=== PATIENT | female | born 1970 | race African-American/Black ===

== ENCOUNTER 2024-06-18 15:17 | Emergency (ER) | payer MEDICAID, OTHER ==
[~2024-06-18] VITALS: Ht 160 cm; Wt 91.0 kg
[~2024-06-18 15:17] MED LIST: ALBU18HF2 IH
[2024-06-18 15:26] VITALS: O2SAT 99
[2024-06-18] MEDS ORDERED: ONDANSETRON HCL 4MG/2ML INJ IV STA (16:04)
[2024-06-18 17:11] LABS: BASOPHILS % 0.7 % (0.0-2.0); EOSINOPHILS % 6.6 % (0.0-5.0); HEMATOCRIT. 38.6 % (36.0-48.0); HEMOGLOBIN. 12.6 g/dL (12.0-16.0); MEAN CORPUSCULAR HEMOGLOBIN 26.8 pg (28.0-32.0); MEAN CORPUSCULAR HGB CONC 32.7 g/dL (31.0-37.0); MEAN CORPUSCULAR VOLUME 81.7 fL (81.0-99.0); MEAN PLATELET VOLUME 8.7 fl (7.4-10.4); MONOCYTES % 10.2 % (2.0-8.0); NEUTROPHILS % 42.5 % (40.0-76.0); PLATELET 299 x1000/uL (130-400); RED BLOOD CELL COUNT 4.72 mill/uL (4.2-5.4); RED CELL DISTRIBUTION WIDTH 16.3 % (11.6-14.6); WHITE BLOOD COUNT 5.8 x1000/uL (4.5-11.0)
[2024-06-18 17:18] LABS: CHLORIDE 106 mEq/L (98-107); POTASSIUM 3.5 mEq/L (3.5-5.1); SODIUM 143 mEq/L (136-145)
[2024-06-18 17:19] LABS: CALCIUM 9.5 mg/dL (8.7-10.4); CARBON DIOXIDE 31 mEq/L (21-32)
[2024-06-18 17:20] LABS: PROTHROMBIN TIME 10.9 sec (9.6-11.0)
[2024-06-18 17:24] LABS: GLUCOSE 101 mg/dL (70-105); UREA NITROGEN BLOOD 9 mg/dL (9-23)
[2024-06-18 17:26] LABS: ALANINE AMINOTRANSFERASE 61 IU/L (10-49); ALBUMIN 4.7 g/dL (3.2-4.8); ASPARTATE AMINOTRANSFERASE 56 IU/L (<34); BILIRUBIN DIRECT 0.4 mg/dL (<=3.0); BILIRUBIN TOTAL 1.6 mg/dL (0.1-1.0)
[2024-06-18 17:29] LABS: TROPONIN I HIGH SENSITIVITY 47 ng/L (3.0-34)
[2024-06-18] MEDS ORDERED: ASPIRIN 325MG EC TABLET PO ONE (18:15)
[2024-06-18] MEDS ORDERED: HYDRALAZINE 20MG/ML VIAL IV PRN (21:45)
[2024-06-18] MEDS: HYDRALAZINE 20MG/ML VIAL IV NR (21:54)
[2024-06-18] MEDS: ENOXAPARIN 100MG/ML SYR SUBCUT SCH (21:55)
[2024-06-18] MEDS: ONDANSETRON HCL 4MG/2ML INJ IV NR (23:40)
[2024-06-18] MEDS: ASPIRIN 325MG EC TABLET PO NR (23:41)
[2024-06-19] MEDS ORDERED: DEXTROSE 50% WATER 50ML SYRINGE IV PRN (05:00)
[2024-06-19] MEDS ORDERED: HYDRALAZINE 20MG/ML VIAL IV PRN (05:15)
[2024-06-19] MEDS ORDERED: ACETAMINOPHEN 325MG TABLET PO PRN (05:15)
[2024-06-19] MEDS: MORPHINE SULFATE 2 MG/ML INJ (NOT FOR IM USE) IV PRN (05:22)
[2024-06-19] MEDS: ONDANSETRON HCL 4MG/2ML INJ IV PRN (05:24)
[2024-06-19] MEDS: SODIUM CHLORIDE 0.45% 1,000 ML IV SCH (06:07)
[2024-06-19] MEDS: INSULIN LISPRO 100 UNITS/ML SUBCUT SCH (08:20)
[2024-06-19] MEDS: BLOOD SUGAR DIAGNOSTIC STRIP TEST SCH (09:00)
[2024-06-19] MEDS: AMLODIPINE 5MG TABLET PO SCH (09:53)
[2024-06-19] MEDS: PANTOPRAZOLE SODIUM 40 MG/VIAL IV SCH (09:53)
[2024-06-19] MEDS: LOSARTAN 50 MG TABLET PO SCH (09:53)
[2024-06-19] MEDS ORDERED: BARIUM SULFATE 176 GM SUSP.RECON ONE (12:55)
[2024-06-19] MEDS ORDERED: EZ-HD SUSPENSION(BARIUM SULFATE 340GM) PO ONE (12:55)
[2024-06-19] MEDS ORDERED: SIMETHICONE/SOD BICARB/CIT AC 1 EACH GRAN.EF.PK ONE (12:56)
[2024-06-19 13:43] VITALS: BP 174/89; PULSE 88; RESP 19; TEMP 37.05852; O2SAT 99
[2024-06-19] MEDS ORDERED: HYDRALAZINE HCL 50MG TABLET PO SCH (14:00)
[2024-06-20] MEDS ORDERED: AMLODIPINE 10MG TABLET PO SCH (09:00)
== END 2024-06-19 14:41 | disposition left against medical advice (07) ==
LOC: ER 15:17
DX: I21.3 ST elevation (STEMI) myocardial infarction of unspecified site (principal); I10 Essential (primary) hypertension; E11.9 Type 2 diabetes mellitus without complications; Z88.0 Allergy status to penicillin; Z98.890 Other specified postprocedural states; Z90.49 Acquired absence of other specified parts of digestive tract; Z90.710 Acquired absence of both cervix and uterus
CPT/HCPCS: 80076; 80048; 83690; 85025; 85610; 84484 ×2; 36415 ×2; 71045; 74176; 93005; 96374; 96375 ×2; 99291; 80061; 82962; 83036; 74220; 96372; 96376; J1650 ×2; J0360; J2405 ×2; Z7610 ×2; J7517; J2470; J2270